=== PATIENT | female | born 1940 | race Caucasian/White ===

== ENCOUNTER 2018-03-23 12:13 | Inpatient (IN) ==
[~2018-03-23 12:13] MED LIST: ceFAZolin SODIUM 1 GM VIAL IV PRN
[2018-03-23 12:45] LABS: Hematocrit 41.8 % (37.0-47.0); Hemoglobin 14.3 gm/dL (12.5-16.0); Mean Cell Volume 89.9 fl (78-100); Mean Corpuscular Hemoglobin 30.8 pg (27-31); Mean Corpuscular Hgb Conc 34.2 g/dl (32-36); Mean Platelet Volume 9.4 fl (8-12.5); Neutrophil # 8.2 K/mm3 (1.3-6.0); Neutrophil % 83.8 % (42-75.0); Platelet Count 194 K/mm3 (150-450); Red Blood Count 4.65 M/mm3 (4.2-5.4); Red Cell Distribution Width 12.5 % (11.5-14.0); White Blood Count 9.8 K/mm3 (4.0-10.5)
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
[2018-03-23 12:53] LABS: Prothrombin Time (Patient) 24.2 Seconds (9.0-11.0)
[2018-03-23 12:54] LABS: INR 2.4 INR (0.90-1.10)
[2018-03-23 12:58] LABS: Albumin * 4.3 gm/dl (3.4-5.0); Anion Gap 15.2 mmol/L (6.8-13.8); BUN/Creatinine Ratio 20.7 (9.0-21.6); Bilirubin, Total 0.9 mg/dL (0.0-1.1); Ca. Corrected For Albumin 8.7 mg/dL (8.4-10.2); Calcium * 9.3 mg/dL (7.9-10.9); Carbon Dioxide 26.6 mmol/L (24-32.6); Magnesium 2.1 mg/dL (1.2-2.8); Potassium 3.8 mmol/L (3.4-4.6); Total Protein 8.3 gm/dL (6.2-8.2)
[2018-03-23] MEDS ORDERED: PHYTONADIONE (VIT K1) 5 MG TABLET PO ONE (13:22)
[2018-03-23] MEDS ORDERED: ONDANSETRON HCL/PF 2 MG/ML VIAL IV ONE (13:25)
[2018-03-23] MEDS ORDERED: MORPHINE SULFATE 4 MG/ML SYRG IV ONE (13:25)
[2018-03-23] MEDS ORDERED: ceFAZolin SODIUM 2 GM in DEXTROSE 5 % IN WATER 50 ML IV PRN ×2 (14:57)
--- NOTE | 2018-03-23 15:10 | CONS ---
HPI - General Date of Service: 03/23/18 Narrative: Consultation note on Kathryn Wise. Kathryn reports she slipped on the ice at home earlier while doing chores outside. She reports severe right hip pain and inability to bear weight on her right lower extremity. She reports no other injuries or complaints. She was brought into the emergency department and evaluated by Dr. Tran. X-rays were obtained which showed displaced intertrochanteric right hip fracture. She is getting admitted to Dr. Edmondson's service. - History of Present Illness Allergies/Adverse Reactions: Allergies sulfamethoxazole [From Bactrim] Adverse Reaction (Verified 03/23/18 12:28) "stomach cramps" trimethoprim [From Bactrim] Adverse Reaction (Verified 03/23/18 12:28) "stomach cramps" Home Medications: Home Medications Medication Instructions Recorded Last Taken warfarin 5 mg tablet 2.5 mg PO .MonThur tab 12/28/17 Unknown benazepril 40 mg tablet 40 mg PO DAILY #90 tab 12/29/17 Unknown gemfibrozil 600 mg tablet 600 mg PO BID #180 tab 12/29/17 Unknown levothyroxine 75 mcg tablet 75 mcg PO DAILY #90 tab 12/29/17 Unknown metoprolol succinate ER 50 mg 50 mg PO DAILY #90 tab 12/29/17 Unknown tablet,extended release 24 hr pantoprazole 40 mg tablet,delayed 40 mg PO DAILY #90 tab 12/29/17 Unknown release warfarin 5 mg tablet See Rx Instructions .ROUTE 01/01/18 Unknown .COMPLEX #90 tab Physical Examination - Exam Narrative: Patient is lying on gurney in the emergency department. She is alert and oriented. Right leg is externally rotated and shortened. She has local pain in the groin area with logroll test. She has tenderness to palpation in the inguinal area. Sensation intact right lower extremity to touch. Posterior tibial pulses 1+. She reports no knee pain with palpation or lower extremity pain with palpation. X-rays reviewed show a displaced intertrochanteric hip fracture. INR is currently 2.4 hemoglobin is 14.3 Vital Signs: Vital Signs - Last Taken Temp 36.4 C 03/23/18 14:17 Pulse 77 03/23/18 14:17 Resp 15 03/23/18 14:17 BP 109/55 03/23/18 14:17 Pulse Ox 95 03/23/18 14:17 O2 Oxygen Delivery Method Room Air - Results and Findings: Lab/Microbiology results last 24 hrs: Abnormal/Pending Laboratory Last 24 HRS 03/23/18 03/23/18 03/23/18 12:35 12:35 12:35 Immature Gran % (Auto) 0.50 H Immature Gran # (Auto) 0.05 H Neutrophils % 83.8 H Lymphocytes % 9.6 L Neutrophils # 8.2 H Lymphocytes # 0.94 L PT 24.2 H INR (Anticoag Therapy) 2.40 H Sodium 143 H Plasma Sodium 144 H Anion Gap 15.2 H Random Glucose 134 H ALT 13 L Total Protein 8.3 H - Assessments/Findings (1) Intertrochanteric fracture of right femur Diagnosis(s): Discussed with Kathryn recommend surgical intervention for fracture with closed reduction and cephalo-medullary fixation of fracture. Pending medical evaluation by Dr. Edmondson if patient is stable hope to proceed with this tomorrow. She will be n.p.o. midnight tonight. Risks discussed with patient including infection, leg length discrepancy, hardware complications, DVT, PE, and pain. We will obtain consents. She will get 2 g of Ancef IV preop. Problem: Acute Qualifiers: Encounter type: initial encounter Fracture type: closed Fracture alignment: nondisplaced Qualified Code(s): S72.144A - Nondisplaced intertrochanteric fracture of right femur, initial encounter for closed fracture (2) Chronic anticoagulation Problem: Acute (3) History of pulmonary embolus (PE) Problem: Acute
--- NOTE | 2018-03-23 16:44 | HP ---
Chief Complaint - Chief Complaint Date of Service: 03/23/18 Time of Service: 16:43 Chief Complaint: Right Hip Pain History of Present Illness: Kathryn, a 77 yo female was out doing chores when she slipped on ice. She immediately had right groin pain and was unable to bear weight on right leg. She presented to the [facility] ER and imaging showed right hip fracture. She reports she has been in her usual state of health without concerns. She specifically denies chest pain or shortness of breath. She has chronic atrial fibrillation and has been rate controlled and anticoagulated with coumadin. INR is currently 2.4. Ortho was consulted and recommended surgical intervention with plans for surgery tomorrow. Ortho requested INR be under 2.0. Patient was given 10mg PO Vitamin K in the ER. Medical History (Last Reviewed 03/23/18 @ 15:12 by Sherine Keane RN) Impaired fasting glucose (Acute) Onset Date: ~02/23/12 Hypothyroidism (Chronic) Onset Date: ~02/23/12 Hypertension (Chronic) Onset Date: ~02/23/12 GERD (gastroesophageal reflux disease) (Chronic) Onset Date: ~02/23/12 CAD (coronary artery disease) (Chronic) Onset Date: ~02/23/12 Chronic systolic congestive heart failure (Chronic) Onset Date: ~02/23/12 Cholelithiasis (Resolved) Onset Date: ~02/23/12 Atrial fibrillation (Chronic) Onset Date: ~02/23/12 Myocardial infarction Onset Date: Unknown Pulmonary embolism Onset Date: Unknown Surgical History: Surgical History (Last Reviewed 03/23/18 @ 15:12 by Sherine Keane RN) History of cataract extraction Onset Date: ~11/201612/01/16 Right, [facility], Dr. Cornelius Lyons 12/08/16 Left, [facility], Dr. Cornelius You Family History: Family History (Last Reviewed 03/23/18 @ 15:12 by Sherine Keane RN) Father CVA (cerebral vascular accident) Mother Myocardial infarction Social History: Patient Lives/Resources Home Utilized Preferred Language Kazakh Do you have any lutheran or No cultural preference? Smoking Status Never smoker Have you smoked in the past 12 No months Do you dip or chew tobacco No Psych History No pertinent hx Alcohol Use none Drug Use none (Last Updated 01/14/18 @ 22:31 by Esau Edmondson DO) No Social History Section defined Review Of Systems (GEN) - Review of Systems Generalized/Overall Review: Absent: Weakness, Chills, Fever EENTM: Present: No Symptoms Reported Respiratory: Absent: Cough, Shortness of Breath Cardiac: Absent: Chest Pain, Edema Abdominal: Present: Vomiting, Abdominal Pain. Absent: Nausea Genitourinary: Present: No Symptoms Reported Musculoskeletal: Present: Joint Pain Neurological: Present: Weakness. Absent: Numbness, Tingling Skin: Present: No Symptoms Reported Immunizations: IMMUNIZATION HX Immunizations Up to Date Yes History of Influenza Vaccine Yes Hx Pneumococcal Vaccination Yes Allergies/Adverse Reactions: Allergies Allergy/AdvReac Type Severity Reaction Status Date / Time sulfamethoxazole AdvReac Verified 03/23/18 15:12 [From Bactrim] trimethoprim [From Bactrim] AdvReac Verified 03/23/18 15:12 Home Medications: HOME MEDICATIONS warfarin 5 mg tablet 2.5 mg PO .MonThur tab 12/28/17 [Last Taken Unknown] benazepril 40 mg tablet 40 mg PO DAILY #90 tab 12/29/17 [Last Taken Unknown] gemfibrozil 600 mg tablet 600 mg PO BID #180 tab 12/29/17 [Last Taken Unknown] levothyroxine 75 mcg tablet 75 mcg PO DAILY #90 tab 12/29/17 [Last Taken Unknown] metoprolol succinate ER 50 mg tablet,extended release 24 hr 50 mg PO DAILY #90 tab 12/29/17 [Last Taken Unknown] pantoprazole 40 mg tablet,delayed release 40 mg PO DAILY #90 tab 12/29/17 [Last Taken Unknown] warfarin 5 mg tablet See Rx Instructions .ROUTE .COMPLEX #90 tab 01/01/18 [Last Taken Unknown] Exam - Exam Vital Signs: Vital Signs - Last Taken Temp 36.4 C 03/23/18 14:59 Pulse 77 03/23/18 14:59 Resp 15 03/23/18 14:59 BP 109/55 03/23/18 14:59 Pulse Ox 95 03/23/18 14:59 Constitutional: Present: Alert, Oriented x3, Cooperative ENT Exam: Present: hearing grossly normal Eye Exam: bilateral eye: normal inspection Respiratory: Present: lungs clear, normal breath sounds, no respiratory distress Cardiovascular/Chest: Present: no murmur, irregularly irregular Peripheral Pulses: radial (R): 2+, radial (L): 2+ Abdomen: Present: Normal bowel sounds, soft, nontender, nondistended Skin Exam: Present: normal color, warm/dry, no cyanosis Neurologic: Present: no motor/sensory deficits, alert, normal mood/affect, oriented x 3 Appearance: Present: appropriate appearance, appropriate insight Eye contact: Present: cooperative, good eye contact, normal speech Diagnostic Studies: Abnormal Lab Results 03/23/18 03/23/18 03/23/18 Range/Units 12:35 12:35 12:35 Immature Gran % (Auto) 0.50 H (0.001-0.429) % Immature Gran # (Auto) 0.05 H (0.000-0.0310) K/mm3 Neutrophils % 83.8 H (42-75.0) % Lymphocytes % 9.6 L (20-51) % Neutrophils # 8.2 H (1.3-6.0) K/mm3 Lymphocytes # 0.94 L (1.5-3.5) k/mm3 PT 24.2 H (9.0-11.0) Seconds INR (Anticoag Therapy) 2.40 H (0.90-1.10) INR Sodium 143 H (132-142) mmol/L Plasma Sodium 144 H (130-142) mmol/L Anion Gap 15.2 H (6.8-13.8) mmol/L Random Glucose 134 H (70-110) mg/dL ALT 13 L (19-67) U/L Total Protein 8.3 H (6.2-8.2) gm/dL Laboratory Results WBC 9.8 K/mm3 (4.0-10.5) 03/23/18 12:35 RBC 4.65 M/mm3 (4.2-5.4) 03/23/18 12:35 Hgb 14.3 gm/dL (12.5-16.0) 03/23/18 12:35 Hct 41.8 % (37.0-47.0) 03/23/18 12:35 MCV 89.9 fl (78-100) 03/23/18 12:35 MCH 30.8 pg (27-31) 03/23/18 12:35 MCHC 34.2 g/dl (32-36) 03/23/18 12:35 RDW 12.5 % (11.5-14.0) 03/23/18 12:35 Plt Count 194 K/mm3 (150-450) 03/23/18 12:35 MPV 9.4 fl (8-12.5) 03/23/18 12:35 Immature Gran % (Auto) 0.50 % (0.001-0.429) H 03/23/18 12:35 Immature Gran # (Auto) 0.05 K/mm3 (0.000-0.0310) H 03/23/18 12:35 Neutrophils % 83.8 % (42-75.0) H 03/23/18 12:35 Lymphocytes % 9.6 % (20-51) L 03/23/18 12:35 Monocytes % 5.1 % (0.0-9) 03/23/18 12:35 Eosinophils % 0.7 % (0.0-3.0) 03/23/18 12:35 Basophils % 0.3 % (0.0-1.0) 03/23/18 12:35 Nucleated RBC % 0.0 k/mm3 (0-1) 03/23/18 12:35 Neutrophils # 8.2 K/mm3 (1.3-6.0) H 03/23/18 12:35 Lymphocytes # 0.94 k/mm3 (1.5-3.5) L 03/23/18 12:35 Monocytes # 0.5 k/mm3 (0.0-1.0) 03/23/18 12:35 Eosinophils # 0.1 k/mm3 (0.0-0.7) 03/23/18 12:35 Absolute Basophils 0.0 k/mm3 (0.0-0.1) 03/23/18 12:35 PT 24.2 Seconds (9.0-11.0) H 03/23/18 12:35 INR (Anticoag Therapy) 2.40 INR (0.90-1.10) H 03/23/18 12:35 Sodium 143 mmol/L (132-142) H 03/23/18 12:35 Plasma Sodium 144 mmol/L (130-142) H 03/23/18 12:35 Potassium 3.8 mmol/L (3.4-4.6) 03/23/18 12:35 Chloride 105 mmol/L (97-106) 03/23/18 12:35 Carbon Dioxide 26.6 mmol/L (24-32.6) 03/23/18 12:35 Anion Gap 15.2 mmol/L (6.8-13.8) H 03/23/18 12:35 BUN 17 mg/dL (3-23) 03/23/18 12:35 Creatinine 0.82 mg/dL (0.4-1.4) 03/23/18 12:35 Est GFR (Non-Af Amer) 72 mL/min (60-130) 03/23/18 12:35 BUN/Creatinine Ratio 20.7 (9.0-21.6) 03/23/18 12:35 Random Glucose 134 mg/dL (70-110) H 03/23/18 12:35 Calcium 9.3 mg/dL (7.9-10.9) 03/23/18 12:35 Calcium Adj for Albumin 8.7 mg/dL (8.4-10.2) 03/23/18 12:35 Magnesium 2.1 mg/dL (1.2-2.8) 03/23/18 12:35 Total Bilirubin 0.9 mg/dL (0.0-1.1) 03/23/18 12:35 AST 21 U/L (0-48) 03/23/18 12:35 ALT 13 U/L (19-67) L 03/23/18 12:35 Alkaline Phosphatase 160 U/L (50-170) 03/23/18 12:35 Creatine Kinase 87 U/L (0-259) 03/23/18 12:35 Total Protein 8.3 gm/dL (6.2-8.2) H 03/23/18 12:35 Albumin 4.3 gm/dl (3.4-5.0) 03/23/18 12:35 Blood Type B Positive 03/23/18 12:35 Antibody Screen Negative 03/23/18 12:35 Assessment/Plan - Narrative Narrative: Kathryn is a 77 yo female with right hip fracture. Ortho has been consulted and recommend surgery. She has chronic atrial fibrillation that is rate controlled and anticoagulated with coumadin. INR is currently 2.4. She was given Vitamin K 10mg PO in the ER. Will recheck INR this evening, if INR is not dropping will redose. Will recheck labs in AM. Surgery anticipated for tomorrow afternoon. She will be NPO at midnight. Revised Cardiac Risk Index <0.4% risk of cardiac event with surgery. I feel she is medically stable for surgery. Will plan to have INR <2 before surgery. Morphine was ineffective for pain control. Will give IV dilaudid 2mg IV prn severe pain control. - Assessment/Plan (1) Intertrochanteric fracture of right femur Problem: Acute Qualifiers: Encounter type: initial encounter Fracture type: closed Fracture alignment: nondisplaced Qualified Code(s): S72.144A - Nondisplaced intertrochanteric fracture of right femur, initial encounter for closed fracture (2) Chronic anticoagulation Problem: Acute (3) Atrial fibrillation Problem: Chronic Qualifiers: Atrial fibrillation type: chronic Qualified Code(s): I48.2 - Chronic atrial fibrillation
[2018-03-23] MEDS: METOPROLOL SUCCINATE 50 MG TABLET.SA PO SCH (17:01)
[2018-03-23] MEDS: ENALAPRIL MALEATE 20 MG TABLET PO SCH (17:02)
[2018-03-23] MEDS: HYDROmorphone HCL 2 MG/ML VIAL IV PRN ×2 (17:02→19:39)
[2018-03-23] MEDS: NORMAL SALINE 1,000 ML IV PRN (19:26)
[2018-03-23] MEDS: ONDANSETRON HCL/PF 2 MG/ML VIAL IV PRN (19:26)
[2018-03-23 20:24] LABS: Prothrombin Time (Patient) 22.9 Seconds (9.0-11.0)
[2018-03-23 20:25] LABS: INR 2.27 INR (0.90-1.10)
[2018-03-23] MEDS ORDERED: NALOXONE HCL 1 MG/1 ML SYRG ONE (23:14)
[2018-03-23] MEDS ORDERED: NALOXONE HCL 0.4 MG/ML VIAL IV ONE (23:21)
[2018-03-23] MEDS ORDERED: HYDROmorphone HCL 1 MG/ML DISP.SYRIN IV PRN (23:24)
[2018-03-24] MEDS: NORMAL SALINE 1,000 ML IV PRN ×2 (03:40→14:02)
[2018-03-24 05:35] LABS: Prothrombin Time (Patient) 16.5 Seconds (9.0-11.0)
[2018-03-24 05:38] LABS: Hematocrit 36.5 % (37.0-47.0); Hemoglobin 11.7 gm/dL (12.5-16.0); INR 1.64 INR (0.90-1.10); Mean Cell Volume 93.1 fl (78-100); Mean Corpuscular Hemoglobin 29.8 pg (27-31); Mean Corpuscular Hgb Conc 32.1 g/dl (32-36); Mean Platelet Volume 9.5 fl (8-12.5); Neutrophil # 5.9 K/mm3 (1.3-6.0); Neutrophil % 75.7 % (42-75.0); Platelet Count 194 K/mm3 (150-450); Red Blood Count 3.92 M/mm3 (4.2-5.4); Red Cell Distribution Width 12.8 % (11.5-14.0); White Blood Count 7.8 K/mm3 (4.0-10.5)
[2018-03-24 06:11] LABS: Albumin * 3.4 gm/dl (3.4-5.0); Anion Gap 10.9 mmol/L (6.8-13.8); BUN/Creatinine Ratio 17.2 (9.0-21.6); Bilirubin, Total 0.8 mg/dL (0.0-1.1); Ca. Corrected For Albumin 8.6 mg/dL (8.4-10.2); Calcium * 8.4 mg/dL (7.9-10.9); Potassium 4.9 mmol/L (3.4-4.6)
[2018-03-24] MEDS: LEVOTHYROXINE SODIUM 75 MCG TABLET PO SCH (06:33)
[2018-03-24] MEDS: METOPROLOL SUCCINATE 50 MG TABLET.SA PO SCH (08:37)
[2018-03-24] MEDS: ENALAPRIL MALEATE 20 MG TABLET PO SCH (08:37)
[2018-03-24] MEDS: ONDANSETRON HCL/PF 2 MG/ML VIAL IV PRN (09:43)
--- NOTE | 2018-03-24 11:07 | ANES ---
Anesthesia Pre Procedure Eval Vitals/Labs: Last Vital Signs Temp 36.8 C 03/24/18 08:39 Pulse 66 03/24/18 08:39 Resp 16 03/24/18 08:39 BP 122/75 03/24/18 08:39 Pulse Ox 97 03/24/18 08:39 HOME MEDICATIONS warfarin 5 mg tablet 2.5 mg PO .MonThur tab 12/28/17 [Last Taken Unknown] benazepril 40 mg tablet 40 mg PO DAILY #90 tab 12/29/17 [Last Taken Unknown] gemfibrozil 600 mg tablet 600 mg PO BID #180 tab 12/29/17 [Last Taken Unknown] levothyroxine 75 mcg tablet 75 mcg PO DAILY #90 tab 12/29/17 [Last Taken Unknown] metoprolol succinate ER 50 mg tablet,extended release 24 hr 50 mg PO DAILY #90 tab 12/29/17 [Last Taken Unknown] pantoprazole 40 mg tablet,delayed release 40 mg PO DAILY #90 tab 12/29/17 [Last Taken Unknown] warfarin 5 mg tablet See Rx Instructions .ROUTE .COMPLEX #90 tab 01/01/18 [Last Taken Unknown] Allergies/Adverse Reactions: Allergies Allergy/AdvReac Type Severity Reaction Status Date / Time sulfamethoxazole AdvReac Verified 03/23/18 15:12 [From Bactrim] trimethoprim [From Bactrim] AdvReac Verified 03/23/18 15:12 - Planned Procedure Planned Procedure: rhip fx, a fib Medication List Reviewed:: Yes Allergies Verified: Yes Medical History (Last Reviewed 03/24/18 @ 11:03 by Akira Fuentes CRNA) Impaired fasting glucose (Acute) Onset Date: ~02/23/12 Hypothyroidism (Chronic) Onset Date: ~02/23/12 Hypertension (Chronic) Onset Date: ~02/23/12 GERD (gastroesophageal reflux disease) (Chronic) Onset Date: ~02/23/12 CAD (coronary artery disease) (Chronic) Onset Date: ~02/23/12 Chronic systolic congestive heart failure (Chronic) Onset Date: ~02/23/12 Cholelithiasis (Resolved) Onset Date: ~02/23/12 Atrial fibrillation (Chronic) Onset Date: ~02/23/12 Myocardial infarction Onset Date: Unknown Pulmonary embolism Onset Date: Unknown Surgical History (Last Reviewed 03/24/18 @ 11:03 by Akira Fuentes CRNA) History of cataract extraction Onset Date: ~11/201612/01/16 Right, [facility], Dr. Cornelius Lyons 12/08/16 Left, [facility], Dr. Cornelius You Family History (Last Reviewed 03/24/18 @ 11:03 by Akira Fuentes CRNA) Father CVA (cerebral vascular accident) Mother Myocardial infarction - Family Anesthesia History Family History:: no untoward family reactions to anesthesia, no familial bleeding tendencies, no family history of clotting disorders, no family history of premature - Airway/Neck/Teeth Within Normal Limits:: Yes Teeth Condition: none Denture Type: None Mallampatti Score: 2 Thyromental (T-M) distance: > 6 cm Mandibulo Hyoid distance: > 3 cm - Respiratory Smoking Status: Never smoker Sleep Apnea currently treated: No Sleep Apnea by current assessment: No - Cardiovascular Cardiac History: [place], arrhythmia - afib, CHF, hypertension Tolerate Activity: Poor Heart Sounds: S1 & S2, Regular - Anesthesia Assessment and Plan ASA Class: PS, III - INR 1.64 Anesthesia Type Plan: General LMA
[2018-03-24] MEDS ORDERED: RINGER'S SOLUTION,LACTATED 1,000 ML IV ONE (12:49)
[2018-03-24] MEDS ORDERED: MAG HYDROX/ALUMINUM HYD/SIMETH 30 ML UDC PO PRN (13:00)
[2018-03-24] MEDS ORDERED: MAGNESIUM HYDROXIDE 30 ML UDC PO PRN (13:00)
[2018-03-24] MEDS ORDERED: ACETAMINOPHEN 500 MG TABLET PO PRN (13:00)
--- NOTE | 2018-03-24 13:00 | OR ---
Operative Report - Dictated Report Narrative: Date: 03/24/2018 Surgeon: Efren Ashraf M.D. Summons Server: Jn Damon PA-C (provided an essential set to a skilled educated handset assisted with transfer, positioning, prepping, draping, placement of instruments, insertion of implants, irrigation, closure wounds, and placement of dressings all which could not be performed by the available surgical crew) Preoperative diagnosis: Closed right Intertrochanteric femur fracture Postoperative diagnosis: Closed right Intertrochanteric femur fracture Operations and procedures: 1. Closed reduction, cephalo-medullary fixation right intertrochanteric femur fracture 2. Intraoperative interpretation of radiographs Anesthesia: Spinal Specimens: None Estimated blood loss: 50 Milliliters Retained implants: [employer] Trigen InterTAN 130 degree size 11.5 mm by 18 centimeter nail with 105 millimeter lag screw and 100 millimeter compression screw, with distal locking screw Complications: None Indications for procedure: Mrs. Wise is a 77-year-old female who injured the right leg after ground-level fall. They were admitted to the hospital after being evaluated in the emergency department. Once the medical provider felt that they were stable for surgical treatment, the risks and benefits alternatives were discussed. The risks of , blood clots, bleeding, infection, nerve/tendon/blood vessel injury, malunion, nonunion, failure of implants, painful implants, arthrosis, and need for additional procedures were discussed. The extremity was marked and consent was obtained on the floor. Procedure: After marking the operative extremity on the floor, the patient was taken to the operating room. A timeout was performed. IV antibiotics consisting of Ancef were administered. A spinal anesthetic was induced by anesthesia, and the patient was then placed onto a fracture table with a well-padded perineal post. The nonoperative leg was placed in a well-padded traction boot in slight extension without any traction with an SCD on the leg. The operative leg was placed in a well-padded traction boot. Longitudinal traction, internal rotation, and flexion were utilized in order to reduce the fracture. Preliminary images were attained utilizing C-arm in both the AP and lateral views. This confirmed that we had obtained adequate visualization of the fracture as well as reduction. Next the hip was then prepped and draped in a standard sterile fashion. Next the guidewire was placed percutaneously proximal to the greater trochanter to nicolas a starting point at the tip of the greater trochanter centered on the lateral view. This was passed down to the level below the lesser trochanter. A scalpel was utilized in order to dissect down to the greater trochanter in order to place the soft tissue protector down to bone. The entry drill was then placed down the proximal femur to the level of the lesser trochanter. The proper size nail was then selected and impacted into place. The outrigger was utilized in order to confirm the appropriate depth of the nail. Using the alignment device on the outrigger, an incision was made over the lateral femur. Sharp dissection was carried through the iliotibial band down to the proximal femur. The guidewire was placed into the femoral head in a center- center position on AP and lateral views. The tip-apex distance of less than 25 mm combined was obtained. Once we felt that we had placed a guidewire in the appropriate position, it was measured. Next the compression screw site was drilled through the lateral femoral cortex. This was then drilled down to the appropriate depth, again confirming that we are within the confines the bone. The derotational bar was then placed and the lag screw was drilled. The lag screw was then secured in place seating fully ensuring that we were within the confines of the bone. The compression screw was then inserted allowing for compression while releasing the traction on the leg. Using C-arm this was visualized to allow for compression across the fracture site. Once is felt that we had adequately stabilized the intertrochanteric fracture, the distal interlocking screw was placed in a dynamic position. It was confirmed to be the appropriate length and within the nail on both AP and lateral views. The nail was secured allowing for controlled compression and the outrigger was removed. The wounds were then thoroughly irrigated. Final images were obtained. The hip was placed through range of motion and showed no crepitance. The deep fascia was closed with 0 Vicryl, the subcutaneous tissue with 3-0 Vicryl, and the skin was closed with zelalem. Sterile dressings of Xeroform, 4 x 4, and tape were applied. All sponge, sharp, and instrument counts were correct prior to closing the wounds. The patient was then awoken and transferred to the postanesthesia care unit in stable condition.
--- NOTE | 2018-03-24 13:22 | ANES ---
Post Anesthesia Discharge - Transfer of Care Transfer of Care handoff given to nurse: Yes - Discharge from PACU Discharge from PACU when meets criteria: Yes - Fentanyl given - Anesthesia Post Op Note Anesthesia Post Op Note: Respirations easlily depressed with fentanyl.
--- NOTE | 2018-03-24 13:43 | ANES ---
Post Anesthesia Assessment - Vital Signs Vitals: Last Vital Signs Temp 37.9 C 03/24/18 13:15 Pulse 69 03/24/18 13:35 Resp 8 L 03/24/18 13:35 BP 137/74 03/24/18 13:35 Pulse Ox 100 03/24/18 13:35 Airway Patency: Normal - Mental Status Level Of Consciousness: Awake, Appropriate - Pain Level Pain Score: 5 - N/V Assessment Nausea/Vomiting Presence: None Dehydration:: No
[2018-03-24] MEDS: HYDROcodone/ACETAMINOPHEN 1 EACH TABLET PO PRN ×2 (14:02→17:49)
[2018-03-24] MEDS ORDERED: WARFARIN SODIUM 5 MG TABLET PO SCH (17:00)
[2018-03-24] MEDS ORDERED: traMADol HCL 50 MG TABLET PO PRN (19:23)
[2018-03-24] MEDS: SENNOSIDES/DOCUSATE SODIUM 1 TAB TABLET PO SCH (20:25)
[2018-03-24] MEDS: ceFAZolin SODIUM 1 GM in DEXTROSE 5 % IN WATER 100 ML IV SCH ×2 (20:25)
--- NOTE | 2018-03-24 22:42 | PN ---
<Mahin Tran - Last Filed: 03/25/18 08:05> Objective - Vitals Vitals: Last Vital Signs Temp 36.7 C 03/25/18 06:00 Pulse 78 03/25/18 06:00 Resp 12 03/25/18 06:00 BP 147/72 03/25/18 06:00 Pulse Ox 100 03/25/18 06:00 - Abnormal Lab Findings Abnormal Lab Findings: Abnormal Lab Results 03/25/18 03/25/18 03/25/18 Range/Units 05:00 05:00 05:00 RBC 3.44 L (4.2-5.4) M/mm3 Hgb 10.7 L (12.5-16.0) gm/dL Hct 31.6 L (37.0-47.0) % MCH 31.1 H (27-31) pg PT 12.4 H (9.0-11.0) Seconds INR (Anticoag Therapy) 1.24 H (0.90-1.10) INR Random Glucose 134 H (70-110) mg/dL - EKG/Xray Findings EKG: NSR EKG read: Reviewed by me <Esau Edmondson - Last Filed: 03/25/18 08:56> Subjective - Date and Time Seen Date: 03/24/18 Time: 16:10 Subjective Narrative: No fever, chills, nausea, or vomiting. Objective - Vitals Vitals: Last Vital Signs Temp 37.0 C 03/24/18 21:00 Pulse 82 03/24/18 21:00 Resp 20 03/24/18 21:00 BP 133/72 03/24/18 21:00 Pulse Ox 95 03/24/18 21:00 - Abnormal Lab Findings Abnormal Lab Findings: Abnormal Lab Results 03/24/18 03/24/18 03/24/18 Range/Units 05:15 05:15 05:15 RBC 3.92 L (4.2-5.4) M/mm3 Hgb 11.7 L (12.5-16.0) gm/dL Hct 36.5 L (37.0-47.0) % Neutrophils % 75.7 H (42-75.0) % Lymphocytes % 12.9 L (20-51) % Monocytes % 10.6 H (0.0-9) % Lymphocytes # 1.00 L (1.5-3.5) k/mm3 PT 16.5 H (9.0-11.0) Seconds INR (Anticoag Therapy) 1.64 H (0.90-1.10) INR Sodium 143 H (132-142) mmol/L Plasma Sodium 143 H (130-142) mmol/L Potassium 4.9 H D (3.4-4.6) mmol/L Chloride 108 H (97-106) mmol/L Random Glucose 117 H (70-110) mg/dL ALT 14 L (19-67) U/L - Exam Constitutional: Present: Alert, Oriented x3, Cooperative ENT Exam: Present: hearing grossly normal Respiratory: Present: lungs clear, normal breath sounds Cardiovascular/Chest: Present: irregularly irregular Abdomen: Present: soft, nontender, nondistended Cauti Physician Documentation - Urinary Catheter Management Urethral (Quiñonez) Date of Insertion: 03/23/18 Time of Insertion: 13:00 Assessment/Plan Plan Narrative: Doing well medically. Surgery today. No current concerns. Patient to restart anticoagulation. - Problems/Diagnosis (1) Intertrochanteric fracture of right femur Problem: Acute Qualifiers: Encounter type: initial encounter Fracture type: closed Fracture alignment: nondisplaced Qualified Code(s): S72.144A - Nondisplaced intertrochanteric fracture of right femur, initial encounter for closed fracture (2) Chronic anticoagulation Problem: Acute (3) Atrial fibrillation Problem: Chronic Qualifiers: Atrial fibrillation type: chronic Qualified Code(s): I48.2 - Chronic atrial fibrillation
[2018-03-25] MEDS: HYDROcodone/ACETAMINOPHEN 1 EACH TABLET PO PRN ×3 (01:50→21:16)
[2018-03-25] MEDS: ceFAZolin SODIUM 1 GM in DEXTROSE 5 % IN WATER 100 ML IV SCH ×4 (03:08→07:06)
[2018-03-25 05:34] LABS: Hematocrit 31.6 % (37.0-47.0); Hemoglobin 10.7 gm/dL (12.5-16.0); Mean Cell Volume 91.9 fl (78-100); Mean Corpuscular Hemoglobin 31.1 pg (27-31); Mean Corpuscular Hgb Conc 33.9 g/dl (32-36); Mean Platelet Volume 9.7 fl (8-12.5); Platelet Count 155 K/mm3 (150-450); Red Blood Count 3.44 M/mm3 (4.2-5.4); Red Cell Distribution Width 12.3 % (11.5-14.0); White Blood Count 7.8 K/mm3 (4.0-10.5)
[2018-03-25 05:40] LABS: Prothrombin Time (Patient) 12.4 Seconds (9.0-11.0)
[2018-03-25 05:41] LABS: Anion Gap 11.2 mmol/L (6.8-13.8); BUN/Creatinine Ratio 18.7 (9.0-21.6); Calcium * 7.9 mg/dL (7.9-10.9); Carbon Dioxide 26.5 mmol/L (24-32.6); Estimated Creat Clear 53.4; INR 1.24 INR (0.90-1.10); Potassium 3.7 mmol/L (3.4-4.6)
[2018-03-25] MEDS: LEVOTHYROXINE SODIUM 75 MCG TABLET PO SCH (07:05)
[2018-03-25] MEDS: METOPROLOL SUCCINATE 50 MG TABLET.SA PO SCH (08:26)
[2018-03-25] MEDS: ENALAPRIL MALEATE 20 MG TABLET PO SCH (08:26)
[2018-03-25] MEDS: ENOXAPARIN SODIUM 40 MG/0.4 ML SYRG SC SCH (12:26)
[2018-03-25] MEDS ORDERED: WARFARIN SODIUM 2.5 MG TABLET PO SCH (17:00)
--- NOTE | 2018-03-25 17:36 | PN ---
Subjective - Date and Time Seen Date: 03/25/18 Time: 08:00 Subjective Narrative: Subjective: Reports mild pain. Was able to get to the chair with therapy. Pain is well-controlled. Tolerating by mouth intake. Physical exam: Alert and oriented to person, place and time Right lower extremity: Palpable dorsalis pedis pulse. Sensation grossly intact to light touch. Dressings clean and dry. Able to flex and extend ankle and toes. No excessive drainage. Calf and thigh are soft and nontender. Assessment: Postop day 1 status post right hip cephalo-medullary fixation for intertrochanteric femur fracture. Plan: Continue with physical and occupational therapy weightbearing as tolerated and range of motion as tolerated. Continue with anticoagulation. 24 hours postoperative prophylactic antibiotics. Pain control with goal to rely on oral medications. Continue bowel regimen. Keep wound covered with dry gauze and tape. Change every 2-3 days as needed. Keep wound dry. Follow-up with orthopedics in approximately 3 weeks. Okay to discharge from an orthopedic standpoint once stable from a medical standpoint. Objective - Vitals Vitals: Last Vital Signs Temp 37 C 03/25/18 13:00 Pulse 73 03/25/18 13:00 Resp 16 03/25/18 13:00 BP 132/58 03/25/18 13:00 Pulse Ox 95 03/25/18 13:00 - Abnormal Lab Findings Abnormal Lab Findings: Abnormal Lab Results 03/25/18 03/25/18 03/25/18 Range/Units 05:00 05:00 05:00 RBC 3.44 L (4.2-5.4) M/mm3 Hgb 10.7 L (12.5-16.0) gm/dL Hct 31.6 L (37.0-47.0) % MCH 31.1 H (27-31) pg PT 12.4 H (9.0-11.0) Seconds INR (Anticoag Therapy) 1.24 H (0.90-1.10) INR Random Glucose 134 H (70-110) mg/dL Cauti Physician Documentation - Urinary Catheter Management Urethral (Quiñonez) Date of Insertion: 03/23/18 Time of Insertion: 13:00 Date of Removal: 03/25/18 Time of Removal: 08:30 Assessment/Plan - Problems/Diagnosis (1) Intertrochanteric fracture of right femur Problem: Acute Qualifiers: Encounter type: subsequent encounter Fracture type: closed Fracture alignment: nondisplaced Fracture healing: with routine healing Qualified Code(s): S72.144D - Nondisplaced intertrochanteric fracture of right femur, subsequent encounter for closed fracture with routine healing
[2018-03-25] MEDS: ONDANSETRON HCL/PF 2 MG/ML VIAL IV PRN (21:15)
[2018-03-25] MEDS: SENNOSIDES/DOCUSATE SODIUM 1 TAB TABLET PO SCH (21:16)
--- NOTE | 2018-03-25 23:51 | PN ---
Subjective - Date and Time Seen Date: 03/25/18 Time: 12:30 Subjective Narrative: Pain controlled. No nausea, vomiting, fever, or chills. Objective - Vitals Vitals: Last Vital Signs Temp 37.4 C 03/25/18 17:42 Pulse 95 03/25/18 17:42 Resp 16 03/25/18 17:42 BP 151/66 H 03/25/18 17:42 Pulse Ox 97 03/25/18 17:42 - Abnormal Lab Findings Abnormal Lab Findings: Abnormal Lab Results 03/25/18 03/25/18 03/25/18 Range/Units 05:00 05:00 05:00 RBC 3.44 L (4.2-5.4) M/mm3 Hgb 10.7 L (12.5-16.0) gm/dL Hct 31.6 L (37.0-47.0) % MCH 31.1 H (27-31) pg PT 12.4 H (9.0-11.0) Seconds INR (Anticoag Therapy) 1.24 H (0.90-1.10) INR Random Glucose 134 H (70-110) mg/dL - Exam Constitutional: Present: Alert, Oriented x3, Cooperative ENT Exam: Present: hearing grossly normal Respiratory: Present: lungs clear, normal breath sounds Cardiovascular/Chest: Present: regular rate, rhythm, no murmur Abdomen: Present: Normal bowel sounds, soft, nontender, nondistended Cauti Physician Documentation - Urinary Catheter Management Urethral (Quiñonez) Date of Insertion: 03/23/18 Time of Insertion: 13:00 Date of Removal: 03/25/18 Time of Removal: 08:30 Assessment/Plan Plan Narrative: Doing well, continue to work with Therapy. Medically doing well. No concerns at this time. Anticipate discharge tomorrow. - Problems/Diagnosis (1) Intertrochanteric fracture of right femur Problem: Chronic Qualifiers: Encounter type: subsequent encounter Fracture type: closed Fracture alignment: displaced Fracture healing: with routine healing Qualified Code(s): S72.141D - Displaced intertrochanteric fracture of right femur, subsequent encounter for closed fracture with routine healing (2) Chronic anticoagulation Problem: Acute (3) Atrial fibrillation Problem: Chronic Qualifiers: Atrial fibrillation type: chronic Qualified Code(s): I48.2 - Chronic atrial fibrillation
[2018-03-26] MEDS: ONDANSETRON HCL/PF 2 MG/ML VIAL IV PRN (05:14)
[2018-03-26] MEDS: HYDROcodone/ACETAMINOPHEN 1 EACH TABLET PO PRN ×2 (05:15→08:56)
[2018-03-26 05:31] LABS: Prothrombin Time (Patient) 10.5 Seconds (9.0-11.0)
[2018-03-26 05:41] LABS: INR 1.05 INR (0.90-1.10)
[2018-03-26] MEDS: LEVOTHYROXINE SODIUM 75 MCG TABLET PO SCH (07:37)
[2018-03-26] MEDS: METOPROLOL SUCCINATE 50 MG TABLET.SA PO SCH (08:51)
[2018-03-26] MEDS: ENALAPRIL MALEATE 20 MG TABLET PO SCH (08:51)
--- NOTE | 2018-03-26 12:09 | DS ---
(1) Intertrochanteric fracture of right femur Problem: Acute Qualifiers: Encounter type: subsequent encounter Fracture type: closed Fracture alignment: nondisplaced Fracture healing: with routine healing Qualified Code(s): S72.144D - Nondisplaced intertrochanteric fracture of right femur, subsequent encounter for closed fracture with routine healing (2) Chronic anticoagulation Problem: Acute (3) Atrial fibrillation Problem: Chronic Qualifiers: Atrial fibrillation type: chronic Qualified Code(s): I48.2 - Chronic atrial fibrillation Description of Stay: Kathryn is a 77 yo female admitted for right intertroch hip fracture she sustained after slipping on the ice. She was medically evaluated and cleared for surgery. Due to chronic atrial fibrillation and long tern anticoagulation on coumadin she was given Vitamin K 10mg 24 hours prior to surgery as her INR was 2.4. INR was down to 1.6 on the day of surgery. She underwent repair on 03/24/18 and did well. Lovenox and Coumadin were started following surgery. She worked wi [employer] therapy but was not strong enough for home discharge. She will be discharged to SNF at [facility] for strengthening. She will follow up in 3 weeks with ortho. Procedures Performed: see notes below List Procedures: 1. Closed reduction, cephalo-medullary fixation right intertrochanteric femur fracture Results and Findings: Lab Pending Results 03/23/18 12:35: WBC 9.8, RBC 4.65, Hgb 14.3, Hct 41.8, MCV 89.9, MCH 30.8, MCHC 34.2, RDW 12.5, Plt Count 194, MPV 9.4, Immature Gran % (Auto) 0.50 H, Immature Gran # (Auto) 0.05 H, Neutrophils % 83.8 H, Lymphocytes % 9.6 L, Monocytes % 5.1, Eosinophils % 0.7, Basophils % 0.3, Nucleated RBC % 0.0, Neutrophils # 8.2 H, Lymphocytes # 0.94 L, Monocytes # 0.5, Eosinophils # 0.1, Absolute Basophils 0.0 03/23/18 12:35: Sodium 143 H, Plasma Sodium 144 H, Potassium 3.8, Chloride 105, Carbon Dioxide 26.6, Anion Gap 15.2 H, BUN 17, Creatinine 0.82, Est GFR (Non-Af Amer) 72, BUN/Creatinine Ratio 20.7, Random Glucose 134 H, Calcium 9.3, Calcium Adj for Albumin 8.7, Magnesium 2.1, Total Bilirubin 0.9, AST 21, ALT 13 L, Alk arminda Phosphatase 160, Creatine Kinase 87, Total Protein 8.3 H, Albumin 4.3 03/23/18 12:35: PT 24.2 H, INR (Anticoag Therapy) 2.40 H 03/23/18 12:35: Blood Type B Positive, Antibody Screen Negative 03/23/18 20:09: PT 22.9 H, INR (Anticoag Therapy) 2.27 H 03/24/18 05:15: WBC 7.8 D, RBC 3.92 L, Hgb 11.7 L, Hct 36.5 L, MCV 93.1, MCH 29.8, MCHC 32.1, RDW 12.8, Plt Count 194, MPV 9.5, Immature Gran % (Auto) 0.40, Immature Gran # (Auto) 0.03, Neutrophils % 75.7 H, Lymphocytes % 12.9 L, Monocytes % 10.6 H, Eosinophils % 0.3, Basophils % 0.1, Nucleated RBC % 0.0, Neutrophils # 5.9, Lymphocytes # 1.00 L, Monocytes # 0.8, Eosinophils # 0.0, Absolute Basophils 0.0 03/24/18 05:15: PT 16.5 H, INR (Anticoag Therapy) 1.64 H 03/24/18 05:15: Sodium 143 H, Plasma Sodium 143 H, Potassium 4.9 H D, Chloride 108 H, Carbon Dioxide 29.0, Anion Gap 10.9, BUN 15, Creatinine 0.87, Est GFR (Non-Af Amer) 67, BUN/Creatinine Ratio 17.2, Random Glucose 117 H, Calcium 8.4, Calcium Adj for Albumin 8.6, Total Bilirubin 0.8, AST 20, ALT 14 L, Alkaline Phosphatase 131, Total Protein 7.0, Albumin 3.4 03/25/18 05:00: WBC 7.8, RBC 3.44 L, Hgb 10.7 L, Hct 31.6 L, MCV 91.9, MCH 31.1 H, MCHC 33.9, RDW 12.3, Plt Count 155, MPV 9.7 03/25/18 05:00: PT 12.4 H, INR (Anticoag Therapy) 1.24 H 03/25/18 05:00: Sodium 140, Plasma Sodium 141, Potassium 3.7 D, Chloride 106, Carbon Dioxide 26.5, Anion Gap 11.2, BUN 14, Creatinine 0.75, Est GFR (Non-Af Amer) 79, BUN/Creatinine Ratio 18.7, Random Glucose 134 H, Calcium 7.9 03/26/18 05:19: PT 10.5, INR (Anticoag Therapy) 1.05 Discharge Location: Other - [facility] Disposition: SNF Condition: Good Level of Care: SNF [facility]cf Therapy: Physicial Therapy, Occupation Therapy Referrals: Efren Ashraf MD [Staff Physician] - (3 Weeks, schedule Delvis and Andriy appointments on same day) Esau Edmondson DO [Primary Care Provider] - (3 Weeks, schedule Delvis and Andriy appointments on same day) Problem Oriented Discharge Instructions to Patient/Family: Hip Fracture Additional Patient Instructions (free text): [facility] at discharge. Dr Brandyn Ford to follow [facility] [place] [facility]. Continue with physical and occupational therapy weightbearing as tolerated and range of motion as tolerated. Continue with anticoagulation. Keep wound covered with dry gauze and tape. Change every 2-3 days as needed. Keep wound dry. Check INR 03/29/18. Continue Lovenox until INR >2. Prescriptions (Any new or edited meds): Enoxaparin Sodium [Lovenox] 40 mg SC Q24H #14 disp.syrin HYDROcodone/ACETAMINOPHEN [Custer 5-325] 1 ea PO Q3H PRN #60 tab PRN Reason: Moderate Pain (Pain Scale 4-6) Complete Home Medications List: Complete Home Medication List: warfarin 5 mg tablet 2.5 mg PO .MonThur tab 12/28/17 benazepril 40 mg tablet 40 mg PO DAILY #90 tab 12/29/17 gemfibrozil 600 mg tablet 600 mg PO BID #180 tab 12/29/17 levothyroxine 75 mcg tablet 75 mcg PO DAILY #90 tab 12/29/17 metoprolol succinate ER 50 mg tablet,extended release 24 hr 50 mg PO DAILY #90 tab 12/29/17 pantoprazole 40 mg tablet,delayed release 40 mg PO DAILY #90 tab 12/29/17 warfarin 5 mg tablet See Rx Instructions .ROUTE .COMPLEX #90 tab 01/01/18 Acetaminophen [Tylenol] 1,000 mg PO Q6H PRN tablet 03/26/18 Enoxaparin Sodium [Lovenox] 40 mg SC Q24H #14 disp.syrin 03/26/18 HYDROcodone/ACETAMINOPHEN [Custer 5-325] 1 ea PO Q3H PRN #60 tab 03/26/18 Mag Hydrox/Aluminum Hyd/Simeth [Maalox Plus Suspension] 30 ml PO Q6H PRN udc 03/26/18 Magnesium Hydroxide [Milk Of Magnesia] 30 ml PO DAILY PRN udc 03/26/18 Sennosides/Docusate Sodium [Senokot-S] 2 tab PO HS tablet 03/26/18 Warfarin Sodium [Coumadin] 2.5 mg PO MoTh@1700 tablet 03/26/18 Warfarin Sodium [Coumadin] 5 mg PO SuTuWeFrSa@1700 tablet 03/26/18 Amb Orders for Discharge: Prothrombin Time Time Frame: 03/29/18, Location: Laboratory
[2018-03-26] MEDS: ENOXAPARIN SODIUM 40 MG/0.4 ML SYRG SC SCH (12:38)
[2018-03-26 14:45] VITALS: BP 160/76
== END 2018-03-26 13:18 | DRG 481 ==
LOC: ER 12:13 → MS 13:35
PROVIDERS: ADMIT Family Medicine; ATTEND Family Medicine
DX: K21.9 Gastro-esophageal reflux disease without esophagitis; I25.10 Atherosclerotic heart disease of native coronary artery without angina pectoris; S72.144A Nondisplaced intertrochanteric fracture of right femur, initial encounter for closed fracture; Y92.480 Sidewalk as the place of occurrence of the external cause; I11.0 Hypertensive heart disease with heart failure; Y93.01 Activity, walking, marching and hiking; Z86.711 Personal history of pulmonary embolism; I48.2 Chronic atrial fibrillation; E03.9 Hypothyroidism, unspecified; W00.2XXA Other fall from one level to another due to ice and snow, initial encounter; I50.22 Chronic systolic (congestive) heart failure; Z79.01 Long term (current) use of anticoagulants
CPT/HCPCS: 36415; 51702; 71010; 71045; 73030; 73502; 73562; 76000; 80048; 80053; 82550; 83735; 85025; 85027; 85610; 86850; 86900; 93005; 96374; 97110; 97116; 97161; 97166; 97530; 99285; J2405